=== PATIENT | female | born 1940 | race Caucasian/White ===

== ENCOUNTER 2017-03-04 06:20 | Day surgery (SDC) | payer MEDICARE, MEDICAID ==
[~2017-03-04] VITALS: Ht 149.9 cm; Wt 57.2 kg
[~2017-03-04 06:20] MED LIST: ASPI-986 PO; CHOL20004 PO; DONE5TAB7 PO; GLIP10TA10 PO; LOSA50TA20 PO; SIMV20TA6 PO
[2017-03-04] MEDS ORDERED: jardiance PO (07:19)
[2017-03-04] MEDS ORDERED: OMEP20CA10 PO (07:19)
[2017-03-04] MEDS ORDERED: SITA100T6 PO (07:19)
[2017-03-04] MEDS ORDERED: METF10002 PO (07:19)
[2017-03-04] MEDS ORDERED: INSU3INS6 SUBCUT (07:19)
[2017-03-04] MEDS ORDERED: IOHEXOL-300 100 ML BOTTLE ONE (08:26)
[2017-03-04] MEDS ORDERED: MIDAZOLAM HCL 2 MG/2 ML VIAL ONE (08:26)
[2017-03-04] MEDS ORDERED: FENTANYL CITRATE/PF 50MCG/ML 2ML VIAL ONE (08:26)
[2017-03-04] MEDS ORDERED: LIDOCAINE HCL 1% 20ML VIAL (Pyxis) INJ ONE (08:27)
[2017-03-04] MEDS ORDERED: HEPARIN SODIUM 1,000 UNIT/1ML VIAL IV ONE (08:28)
[2017-03-04] MEDS ORDERED: ATROPINE SULFATE 0.1MG/ML 10ML DISP.SYRIN ONE (08:36)
[2017-03-04] MEDS ORDERED: ACETAMINOPHEN 325MG TABLET PO PRN (09:45)
[2017-03-04] MEDS ORDERED: ATROPINE SULFATE 1MG/10ML SYR IV PRN (09:45)
[2017-03-04] MEDS ORDERED: MORPHINE SULFATE 2 MG/ML CPJ (NOT FOR IM USE) IV PRN (09:45)
[2017-03-04] MEDS ORDERED: ONDANSETRON HCL 4MG/2ML VIAL IV PRN (09:45)
[2017-03-04] MEDS ORDERED: NITROGLYCERIN 50MCG/ML 10ML VIAL (CATH LAB) IV ONE (14:11)
[2017-03-04] MEDS ORDERED: NICARDIPINE 100MCG/ML 10ML VIAL (CATH LAB) IV ONE (14:11)
[2017-03-04] MEDS ORDERED: GLIPIZIDE 10MG TABLET PO SCH (17:00)
[2017-03-05] MEDS ORDERED: LOSARTAN POTASSIUM 50 MG TABLET PO SCH (09:00)
[2017-03-05] MEDS ORDERED: ASPIRIN 325MG TABLET PO SCH (09:00)
[2017-03-05] MEDS ORDERED: DONEPEZIL HCL 5MG TABLET PO SCH (09:00)
== END 2017-03-04 12:30 | disposition home or self-care (01) ==
LOC: CCL 06:20
PROVIDERS: ATTEND Specialist
DX: I25.10 Atherosclerotic heart disease of native coronary artery without angina pectoris (principal); E78.5 Hyperlipidemia, unspecified; I10 Essential (primary) hypertension; E11.9 Type 2 diabetes mellitus without complications; M19.90 Unspecified osteoarthritis, unspecified site; Z79.82 Long term (current) use of aspirin; Z79.84 Long term (current) use of oral hypoglycemic drugs; Z79.899 Other long term (current) drug therapy
CPT/HCPCS: 82962; 93458; 99152; 99153; C1769; C1893; J1644; J2250; J3010; J3490; Q9967; J0461